=== PATIENT | male | born 1995 | race Hispanic/Latino ===

== ENCOUNTER → 2024-06-23 | Outpatient (CLI) | payer OTHER ==
--- NOTE | 2024-06-23 11:06 | EKG ---
[facility] Test Date: 2024-06-23 Test Time: 11:02:38 Pat Name: KENDAL PERKINS Department: RESP Room: Gender: [employer] Automatic: [id number] : 1995 Requested By: GLO MOODY Order Number: [id number] Reading MD: Bret Pool Measurements Intervals [place] Rate: 72 P: 38 MD: 118 QRS: 82 QRSD: 114 T: 48 QT: 412 QTc: 451 Interpretive Statements Normal sinus rhythm No previous ECG available for comparison Electronically Signed On 06-23-2024 18:59:10 CDT by Bret Pool Please click the below link to view image of tracing.
--- NOTE | 2024-06-23 11:34 | HMCIMG ---
Exam Type: CHEST 2VWS Clinical Information: SOB/ISCHEMIC HEART DISEASE Comparison: None Findings: The lungs are clear of infiltrates. The heart is normal in size. The bony and soft tissue structures of the chest are unremarkable. Impression: Clear lungs.
--- NOTE | 2024-06-23 18:47 | HMCSR ---
APPROVED REPORT EXAM: Two-dimensional and M-mode echocardiogram with Doppler and color Doppler. INDICATION ICD: Chronic ischemic heart disease, unspecified I25.9 R06.02 2D Dimensions RVDd4.9 cmLVEF(%)66.3 (>50%)LVED Vol(simp.)138.0 mL IVSd1.0 (0.7-1.1cm)FS(%)37 %LVES Vol(simp.)54.0 mL LVDd5.6 (3.8-5.6cm)LA (2D)5.2 (1.6-4.0cm)LVEF(%, simp.)61 % PWd1.0 (0.7-1.1cm)Ao Root(2D)3.5 (2.0-3.7cm)LA ESV INDEX (BP)35.90 mL/m2 IVSs1.5 cmLVOT diam2.6 (1.8-2.4cm) LVDs3.5 (2.5-4.0cm)IVC diam1.3 cm PWs1.4 cm M-Mode Dimensions EPSS0.4 cm LA (MM)5.0 (1.6-4.0cm) Ao Root(MM)3.0 (2.0-3.7cm) Aortic Valve AoV Vmax1.6 m/Perlita Peak GR9.9 mmHgLVOT Vmax1.5 m/s AoV VTI0.3 mAo Mean GR5.4 mmHgLVOT VTI0.29 m JANETT (VMAX)5.62 cm2AVA (VTI) 5.6 cm2 Mitral Valve MV E Vmax64.8 cm/sDECEL Ntis117 ms MV A Vmax54.9 cm/sP 1/2 T41 ms E/A ratio1.2MVA (PHT)5.4 cm2 TDI E/E' Medial7.1E/E' Lateral5.2 Medial E' Peak V9.18 cm/sLateral E' Peak V12.50 cm/s Pulmonary Valve PV Vmax1.5 m/sPV VTI0.30 mPV Mean GR4.9 mmHg PV Peak GR8.9 mmHg Tricuspid Valve TR Vmax1.6 m/sRVSP9.8 mmHg TR Peak GR10.1 mmHg Left Ventricle The left ventricle is normal size. There is normal LV segmental wall motion. There is normal left nolberto tricular wall thickness. LVEF is 60-65%. The left ventricular diastolic function is normal. Right Ventricle The right ventricle is dilated. The right ventricular systolic function is normal. Atria The left atrium is mildly dilated. The right atrium size is normal. Aortic Valve The aortic valve is normal in structure. No aortic regurgitation is present. There is no aortic valvu lar stenosis. Mitral Valve The mitral valve is normal in structure. There is trace mitral valve regurgitation noted. There is no mitral valve stenosis. Tricuspid Valve The tricuspid valve is normal in structure. There is trace tricuspid valve regurgitation noted. Pulmonic Valve Pulmonic valve is not well visualized. There is no pulmonic valvular regurgitation. Great Vessels The aortic root is normal in size. The IVC is normal in size and collapses >50% with inspiration. Pericardium There is no pericardial effusion. Other Information Quality : Good Conclusion The left ventricle is normal size. LVEF is 60-65% with normal LV segmental wall motion. The left ventricular diastolic function is normal. The right ventricle is dilated with a preserved systolic function. The left atrium is mildly dilated. No hemodynamically significant valvular abnormalities. There is no pericardial effusion.
== END | disposition home or self-care (01) ==
LOC: RESP 10:18
PROVIDERS: ATTEND Chiropractor
DX: I25.9 Chronic ischemic heart disease, unspecified (principal); R06.02 Shortness of breath
CPT/HCPCS: 71046; 93005; 93306; 94060